=== PATIENT | male | born 1975 | race Caucasian/White ===

== ENCOUNTER → 2025-09-19 | Day surgery (SDC) | payer BC ==
[2025-09-15 11:34] VITALS: BMI 35.2
[~2025-09-19] MED LIST: AFRIN NASAL MIST 15 ML BOT ONE; CEFAZOLIN 1 GM VIAL ONE; Glycopyrrolate 0.2 MG/ML 5 ML SYRINGE ONE; Lidocaine 1% PF 5 ML VIAL ONE; Lidocaine 1% w/Epinephrine 1:200K 30 ML VIAL ONE; Ondansetron PF 4 MG/2 ML Vial ONE; PROPOFOL 20 ML ONE; Rocuronium Bromide 10 MG/ML (10ML VIAL) ONE; Tranexamic Acid 1,000 MG/10 ML VIAL ONE
== END ==
LOC: CSHSDC 07:39
PROVIDERS: ATTEND Otolaryngology
PROC: 09BM0ZZ Excision of Nasal Septum, Open Approach (ICD-10-PCS; principal; 2025-09-19)
DX: J34.2 Deviated nasal septum (principal); J34.3 Hypertrophy of nasal turbinates; J30.1 Allergic rhinitis due to pollen; G47.33 Obstructive sleep apnea (adult) (pediatric); H61.21 Impacted cerumen, right ear; J32.9 Chronic sinusitis, unspecified; Z88.0 Allergy status to penicillin
CPT/HCPCS: J0690; J1100; J2405; J2704; J3010